=== PATIENT | male | born 1985 | race Native Hawaiian/Other Pacific Islander ===

== ENCOUNTER 2017-03-18 12:51 | Emergency (ER) | payer SELFPAY ==
[2017-03-18 12:57] VITALS: RESP 16; TEMP 98.1; O2SAT 99
--- NOTE | 2017-03-18 14:11 | ED PDOC ---
Syncope/Near Syncope/Dizziness Time Seen by Provider: 03/18/17 13:11 Chief Complaint (Nursing): Dizziness/Lightheaded History Per: Patient (presents to the ER because of dizziness this morning. He states that he was told that he had high blood pressure from a doctor's visit about 1 month ago. He was told to lose weight and eat better and to followup with his PMD. He says that his BP would go up and down. He woke up this morning with dizziness (not feeling steady but no spinning). He denies chest pain or shortness of breath.) History/Exam Limitations: no limitations Onset/Duration Of Symptoms: Intermittent Episodes Associated Symptoms Preceding Syncopal Episode: No Predromal Symptoms (Sudden Onset), Lightheadedness. denies: Vertigo, Vertigo Worse With Change In Head Position Seizure Or Post-ictal Symptoms: None Possible Causative Factor(s): denies: Vertigo, Lightheaded W/Exertion, New Medications Fall Associated With With Symptoms: No Past Medical History Reviewed: Historical Data, Nursing Documentation, Vital Signs Vital Signs: Last Vital Signs Temp 98.1 F 03/18/17 12:55 Pulse 103 H 03/18/17 12:55 Resp 16 03/18/17 12:55 BP 163/97 H 03/18/17 12:55 Pulse Ox 99 03/18/17 12:55 - Medical History Other PMH: elevated blood pressure - Surgical History Surgical History: No Surg Hx - Family History Family History: States: No Known Family Hx, Hypertension - Living Arrangements Living Arrangements: Alone - Home Medications Home Medications: Ambulatory Orders Medication Instructions Recorded Amoxicillin/Clavulanate Pota 1 tab PO BID #14 tab 12/08/13 [Augmentin 875 mg-125 mg] Fluticasone Propionate [Flonase] 2 sprays NS ONCE #1 ml 12/08/13 amLODIPine [Norvasc] 5 mg PO DAILY #15 tab 03/18/17 - Allergies Allergies/Adverse Reactions: Allergies Allergy/AdvReac Type Severity Reaction Status Date / Time No Known Allergies Allergy Verified 03/18/17 12:54 Review of Systems ROS Statement: Except As Marked, All Systems Reviewed And Found Negative Constitutional: Negative for: Fever Cardiovascular: Negative for: Chest Pain, Palpitations, Orthopnea Respiratory: Negative for: Cough, Shortness of Breath Gastrointestinal: Negative for: Vomiting Musculoskeletal: Negative for: Neck Pain Neurological: Negative for: Weakness Physical Exam - Reviewed Nursing Documentation Reviewed: Yes Vital Signs Reviewed: Yes - Physical Exam Appears: Positive for: Well, Non-toxic, No Acute Distress Head Exam: Positive for: ATRAUMATIC, NORMAL INSPECTION, NORMOCEPHALIC Skin: Positive for: Normal Color, Warm, DRY Eye Exam: Positive for: EOMI, Normal appearance, PERRL ENT: Positive for: Normal ENT Inspection Neck: Positive for: Normal, Painless ROM Cardiovascular/Chest: Positive for: Regular Rate, Rhythm Respiratory: Positive for: CNT, Normal Breath Sounds Gastrointestinal/Abdominal: Positive for: Normal Exam, Bowel Sounds, Soft Back: Positive for: Normal Inspection Extremity: Positive for: Normal ROM Neurologic/Psych: Positive for: Alert, Oriented - Laboratory Results Result Diagrams: 03/18/17 14:10 03/18/17 14:10 - ECG O2 Sat by Pulse Oximetry: 99 Disposition - Clinical Impression Clinical Impression: Hypertension - Patient ED Disposition Is Patient to be Admitted: No Doctor Will See Patient In The: Office Counseled Patient/Family Regarding: Diagnosis, Need For Followup, Rx Given - Disposition Referrals: Leonardo Davalos MD [Medical Doctor] - [facility] [Outside] Disposition: Routine/Home Disposition Time: 16:43 Condition: IMPROVED Prescriptions: amLODIPine [Norvasc] 5 mg PO DAILY #15 tab Instructions: Hypertension (ED) Forms: [employer] ([place] Citizen), [facility] ED School/Work Excuse - POA Present On Arrival: None
[2017-03-18 14:19] LABS: BASO # 0.1 K/uL (0.0-0.2); BASO % 0.6 % (0.0-2.0); EOS # 0.1 K/uL (0.0-0.7); EOS % 0.7 % (0.0-4.0); HEMATOCRIT 44.4 % (35.0-51.0); LYMPH # 2.4 K/uL (1.0-4.3); LYMPH % 25.3 % (20.0-40.0); MEAN CELL VOLUME 87.7 fl (80.0-94.0); MEAN CORPUSCULAR HEMOGLOBIN 30.3 pg (27.0-31.0); MEAN CORPUSCULAR HGB CONC 34.5 g/dL (33.0-37.0); MEAN PLATELET VOLUME 8.6 fl (7.2-11.7); MONO # 0.5 K/uL (0.0-0.8); MONO % 5.9 % (0.0-10.0); NEUT # 6.3 K/uL (1.8-7.0); NEUT % 67.5 % (50.0-75.0); NRBC % 0.1 % (0.0-0.0); RED CELL DISTRIBUTION WIDTH 13.2 % (11.5-14.5); WHITE BLOOD COUNT 9.3 K/uL (4.8-10.8)
[2017-03-18 14:34] LABS: BLOOD UREA NITROGEN 16 mg/dl (9-20); CALCIUM 9.6 mg/dL (8.4-10.2); CARBON DIOXIDE 27 mmol/L (22-30); CHLORIDE 99 mmol/L (98-107); GFR AFRICAN-AMERICAN > 60; GLUCOSE,RANDOM 96 mg/dL (75-110); SODIUM 140 mmol/l (132-148)
[2017-03-18 17:09] VITALS: BP 145/76; PULSE 87
--- NOTE | 2017-03-20 10:50 | CARD ---
APPROVED REPORT EKG Measurement Heart [id number] 160P59 [id number] <Conclusion> Normal sinus rhythm Normal ECG
== END 2017-03-18 17:10 | disposition home or self-care (01) ==
LOC: H.ER 12:51
DX: R42 Dizziness and giddiness (principal); I10 Essential (primary) hypertension

== ENCOUNTER 2018-03-11 09:26 | Emergency (ER) | payer OTHER ==
--- NOTE | 2018-03-11 10:38 | ED PDOC ---
Syncope/Near Syncope/Dizziness Time Seen by Provider: 03/11/18 09:49 Chief Complaint (Nursing): Dizziness/Lightheaded Chief Complaint (Provider): Dizziness History Per: Patient History/Exam Limitations: no limitations Onset/Duration Of Symptoms: Hrs (this morning) Fall Associated With With Symptoms: No Additional Complaint(s): Chai Biggs is a 32 year old male, with a past medical history of HTN, who presents to the emergency department complaining of dizziness while cooking in a hot grill this morning. He denies any LOC, chest pain, palpitations, headache or weakness. No further medical complaints. PMD: None provided. Past Medical History Reviewed: Historical Data, Nursing Documentation, Vital Signs Vital Signs: Last Vital Signs Temp 98.4 F 03/11/18 09:35 Pulse 98 H 03/11/18 09:35 Resp 17 03/11/18 09:35 BP 157/92 H 03/11/18 09:35 Pulse Ox 98 03/11/18 09:35 - Medical History PMH: HTN Denies: Chronic Kidney Disease - Surgical History Surgical History: No Surg Hx - Family History Family History: States: Hypertension - Social History Ex-Smoker (has not smoked in the last 12 months): Yes Alcohol: Social Drugs: Denies - Immunization History Hx Tetanus Toxoid Vaccination: No Hx Influenza Vaccination: No Hx Pneumococcal Vaccination: No - Home Medications Home Medications: Ambulatory Orders Medication Instructions Recorded Amoxicillin/Clavulanate Pota 1 tab PO BID #14 tab 12/08/13 [Augmentin 875 mg-125 mg] Fluticasone Propionate [Flonase] 2 sprays NS ONCE #1 ml 12/08/13 amLODIPine [Norvasc] 5 mg PO DAILY #15 tab 03/18/17 - Allergies Allergies/Adverse Reactions: Allergies Allergy/AdvReac Type Severity Reaction Status Date / Time No Known Allergies Allergy Verified 03/18/17 12:54 Review of Systems ROS Statement: Except As Marked, All Systems Reviewed And Found Negative Cardiovascular: Negative for: Chest Pain, Palpitations Neurological: Positive for: Dizziness. Negative for: Weakness, Headache Physical Exam - Reviewed Nursing Documentation Reviewed: Yes Vital Signs Reviewed: Yes - Physical Exam Appears: Positive for: No Acute Distress Head Exam: Positive for: ATRAUMATIC, NORMAL INSPECTION, NORMOCEPHALIC Skin: Positive for: Normal Color, Warm, Dry Eye Exam: Positive for: Normal appearance, EOMI, PERRL ENT: Positive for: Normal ENT Inspection Neck: Positive for: Normal, Painless ROM Cardiovascular/Chest: Positive for: Regular Rate, Rhythm. Negative for: Murmur Respiratory: Positive for: Normal Breath Sounds. Negative for: Respiratory Distress Gastrointestinal/Abdominal: Positive for: Normal Exam, Soft. Negative for: Tenderness, Guarding, Rebound Back: Positive for: Normal Inspection. Negative for: L CVA Tenderness, R CVA Tenderness, Vertebral Tenderness Extremity: Positive for: Normal ROM (upper and lower extremities). Negative for: Deformity, Swelling Neurologic/Psych: Positive for: Alert, Oriented. Negative for: Motor/Sensory Deficits (no focal deficits) - ECG O2 Sat by Pulse Oximetry: 98 (RA) Pulse Ox Interpretation: Normal Medical Decision Making Medical Decision Making: Time: 09:49 Initial Plan: --EKG --Reevaluation ----- Scribe Attestation: Documented by Neal Woodward, acting as a scribe for nAdres Maldonado MD. Provider Scribe Attestation: All medical record entries made by the Scribe were at my direction and personally dictated by me. I have reviewed the chart and agree that the record accurately reflects my personal performance of the history, physical exam, medical decision making, and the department course for this patient. I have also personally directed, reviewed, and agree with the discharge instructions and disposition. Disposition - Clinical Impression Clinical Impression: Heat exposure - Patient ED Disposition Is Patient to be Admitted: No Counseled Patient/Family Regarding: Studies Performed, Diagnosis, Need For Followup - Disposition Disposition: Routine/Home Disposition Time: 11:10 Condition: FAIR Additional Instructions: Follow up employee health Instructions: Heat Exhaustion and Heat Stroke (DC) Forms: [employer] (Citizen Of [place]), [facility] ED School/Work Excuse
[2018-03-11 11:59] VITALS: BP 138/68; PULSE 85; RESP 18; TEMP 98.5; O2SAT 99
--- NOTE | 2018-03-11 19:06 | CARD ---
APPROVED REPORT Date of service: 03/11/2018 EKG Measurement Heart [id number] 150P43 [id number] <Conclusion> Normal sinus rhythm Normal ECG
== END 2018-03-11 11:25 | disposition home or self-care (01) ==
LOC: H.ER 09:26
DX: T75.89XA Other specified effects of external causes, initial encounter (principal); I10 Essential (primary) hypertension; Z87.891 Personal history of nicotine dependence

== ENCOUNTER 2018-06-11 10:05 | Emergency (ER) | payer OTHER ==
[2018-06-11 10:09] VITALS: BP 160/83; PULSE 87; RESP 15; TEMP 98.2; O2SAT 98
[2018-06-11] MEDS ORDERED: Povidone Iodine Topical 10% Sol ONE (10:27)
[2018-06-11] MEDS ORDERED: Tdap Vaccine 0.5 ml Vial (10-64 yrs) IM ONE (11:03)
[2018-06-11] MEDS ORDERED: Lidocaine 2% w Epi 1:100,000 Inj IJ ONE ×2 (11:35→11:50)
--- NOTE | 2018-06-11 12:01 | ED PDOC ---
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 The result is a mild avulsion of the medial distal tip of the first left digit. The patient placed cumin on the wound to arrest bleeding. Pt denies infection, swelling, drainage or discharge) Past Medical History Reviewed: Historical Data, Nursing Documentation, Vital Signs Vital Signs: Last Vital Signs Temp 98.2 F 06/11/18 10:07 Pulse 87 06/11/18 10:07 Resp 15 06/11/18 10:07 BP 160/83 H 06/11/18 10:07 Pulse Ox 98 06/11/18 10:07 - Medical History PMH: HTN Denies: Chronic Kidney Disease - Family History Family History: States: Hypertension - Immunization History Hx Tetanus Toxoid Vaccination: No Hx Influenza Vaccination: No Hx Pneumococcal Vaccination: No - Home Medications Home Medications: Ambulatory Orders Medication Instructions Recorded Amoxicillin/Clavulanate Pota 1 tab PO BID #14 tab 12/08/13 [Augmentin 875 mg-125 mg] Fluticasone Propionate [Flonase] 2 sprays NS ONCE #1 ml 12/08/13 amLODIPine [Norvasc] 5 mg PO DAILY #15 tab 03/18/17 Cephalexin [cephalexin] 500 mg PO QID #40 cap 06/11/18 - Allergies Allergies/Adverse Reactions: Allergies Allergy/AdvReac Type Severity Reaction Status Date / Time No Known Allergies Allergy Verified 03/18/17 12:54 Review of Systems ROS Statement: Except As Marked, All Systems Reviewed And Found Negative Skin: Positive for: Other (avulsion as described) Physical Exam - Reviewed Nursing Documentation Reviewed: Yes Vital Signs Reviewed: Yes - Physical Exam Appears: Positive for: Well, Non-toxic, No Acute Distress. Negative for: Uncomfortable Head Exam: Positive for: ATRAUMATIC, NORMAL INSPECTION Skin: Positive for: Normal Color (See HPI for desdcription of avusion to medial distal edge of first digit), Warm, Dry Cardiovascular/Chest: Positive for: Regular Rate, Rhythm Respiratory: Positive for: Normal Breath Sounds Pulses-Carotid (L): 2+ Pulses-Carotid (R): 2+ Pulses-Radial (L): 2+ Pulses-Radial (R): 2+ - ECG O2 Sat by Pulse Oximetry: 98 Medical Decision Making Medical Decision Making: I: Avulsion P: Remove cumin stain/induration Arrest bleeding with soak of lidocaine with epi Cover in bacitracin and wrap. TDAP in ED ABX on discharge Disposition - Clinical Impression Clinical Impression: Laceration - Patient ED Disposition Is Patient to be Admitted: No Doctor Will See Patient In The: Office Counseled Patient/Family Regarding: Diagnosis, Need For Followup, Rx Given - Disposition Referrals: Non [facility] Provider, [Primary Care Provider] - Disposition: Routine/Home Disposition Time: 12:16 Condition: STABLE Prescriptions: Cephalexin [cephalexin] 500 mg PO QID #40 cap Instructions: Wound Care (DC) Forms: [employer] ([place])
== END 2018-06-11 12:30 | disposition home or self-care (01) ==
LOC: SUPCPDRO 10:05 → H.ER 10:05
DX: S69.92XA Unspecified injury of left wrist, hand and finger(s), initial encounter (principal); I10 Essential (primary) hypertension; W26.0XXA Contact with knife, initial encounter; Y93.G1 Activity, food preparation and clean up; Z23 Encounter for immunization